=== PATIENT | female | born 1985 | race Asian ===

== ENCOUNTER 2021-02-24 18:10 | Emergency (ER) | payer SELFPAY ==
[2021-02-24 18:25] VITALS: BP 109/62
== END 2021-02-25 04:49 | disposition left against medical advice (07) ==
LOC: ED 18:10
DX: R05.9 Cough, unspecified (principal); R06.02 Shortness of breath; R51.9 Headache, unspecified; Z53.21 Procedure and treatment not carried out due to patient leaving prior to being seen by health care provider

== ENCOUNTER 2021-02-25 10:57 | Emergency (ER) | payer SELFPAY ==
[2021-02-25 11:22] VITALS: BP 107/67
--- NOTE | 2021-02-25 12:02 | Emergency Department Report ---
- General Chief Complaint: Upper Respiratory Infection Stated Complaint: COVID SYMPTONS Time Seen by Provider: 02/25/21 11:17 Source: patient Mode of arrival: Ambulatory Limitations: No Limitations - History of Present Illness Initial Comments: This is a pleasant 35-year-old female who presents emerged department chief complaint of cough, congestion, fever, body aches, headache and pain in her chest when she coughs x6 days. She denies any known past medical history, current medication use or known allergies to medications. She does report a previous surgery of a hysterectomy back 2008. She does report she has daily tobacco user approximately half pack a day but has not smoked in the last week since her symptoms started. She does report positive exposure to COVID-19. - Related Data Previous Rx's Medication Instructions Recorded Last Taken Type Azithromycin 250 mg PO DAILY #6 tablet 02/25/21 Unknown Rx Prednisone [predniSONE 10 mg 10 mg PO .TAPER #1 tab.ds.pk 02/25/21 Unknown Rx (6-Day Pack, 21 Tabs)] guaiFENesin/CODEINE [Robitussin AC] 5 ml PO Q6HR #60 oral.liqd 02/25/21 Unknown Rx Allergies Allergy/AdvReac Type Severity Reaction Status Date / Time No Known Allergies Allergy Unverified 02/21/21 01:55 ED Review of Systems ROS: Stated complaint: COVID SYMPTONS Other details as noted in HPI Comment: All other systems reviewed and negative Constitutional: chills, fever, malaise Eyes: denies: eye pain, eye discharge, vision change ENT: congestion. denies: ear pain, throat pain Respiratory: cough. denies: shortness of breath, wheezing Cardiovascular: denies: chest pain, palpitations Endocrine: no symptoms reported Gastrointestinal: denies: abdominal pain, nausea, diarrhea Genitourinary: denies: urgency, dysuria, discharge Musculoskeletal: as per HPI, myalgia. denies: back pain, joint swelling, arthralgia Skin: denies: rash, lesions Neurological: as per HPI, headache. denies: weakness, paresthesias Psychiatric: denies: anxiety, depression Hematological/Lymphatic: denies: easy bleeding, easy bruising ED Past Medical Hx - Surgical History Additional Surgical History: HYST - Medications Home Medications: Home Medications Medication Instructions Recorded Confirmed Last Taken Type Azithromycin 250 mg PO DAILY #6 tablet 02/25/21 Unknown Rx Prednisone [predniSONE 10 mg 10 mg PO .TAPER #1 tab.ds.pk 02/25/21 Unknown Rx (6-Day Pack, 21 Tabs)] guaiFENesin/CODEINE [Robitussin AC] 5 ml PO Q6HR #60 oral.liqd 02/25/21 Unknown Rx ED Physical Exam - General Limitations: No Limitations General appearance: alert, in no apparent distress - Head Head exam: Present: atraumatic, normocephalic - Eye Eye exam: Present: normal appearance, PERRL, EOMI Pupils: Present: normal accommodation - ENT ENT exam: Present: normal exam, normal orophraynx, mucous membranes moist, TM's normal bilaterally - Neck Neck exam: Present: normal inspection, full ROM. Absent: tenderness, meningismus - Respiratory Respiratory exam: Present: normal lung sounds bilaterally, chest wall tenderness. Absent: respiratory distress, wheezes, rales, rhonchi, stridor - Cardiovascular Cardiovascular Exam: Present: regular rate, normal rhythm, normal heart sounds. Absent: systolic murmur, diastolic murmur, rubs, gallop - GI/Abdominal GI/Abdominal exam: Present: soft, normal bowel sounds - Extremities Exam Extremities exam: Present: normal inspection, full ROM, normal capillary refill. Absent: tenderness, calf tenderness (No posterior calf tenderness, negative Homans' sign bilaterally.) - Back Exam Back exam: Present: normal inspection, full ROM. Absent: tenderness, CVA tenderness (R), CVA tenderness (L) - Neurological Exam Neurological exam: Present: alert, oriented X3, normal gait - Psychiatric Psychiatric exam: Present: normal affect, normal mood - Skin Skin exam: Present: warm, dry, intact, normal color. Absent: rash ED Course Vital Signs 02/25/21 02/25/21 11:18 12:49 Temperature 98.2 F 98.3 F Pulse Rate 116 H 107 H Respiratory 20 18 Rate Blood Pressure 107/67 [Right] O2 Sat by Pulse 95 95 Oximetry ED Medical Decision Making - Radiology Data Radiology results: report reviewed, image reviewed Patient: NICOLE WETZEL MR#: [id number] : 1985 Acct:[id number] Age/Sex: 35 / F ADM Date: 02/25/21 Loc: ED Attending Dr: Ordering Physician: RICA SHAH Date of Service: 02/25/21 Procedure(s): CT head/brain wo con Accession Number(s): [id number] cc: RICA SHAH CT HEAD WITHOUT CONTRAST INDICATION / CLINICAL INFORMATION: severe headache. TECHNIQUE: All CT scans at this location are performed using CT dose reduction for ALARA by means of automated exposure control. COMPARISON: None available. Limitations: Patient motion artifact degrades image quality and limits evaluation of the frontal and parietal lobes near the vertex. FINDINGS: HEMORRHAGE: No evidence of intracranial hemorrhage or extra-axial fluid collection. EXTRA-AXIAL SPACES: Cortical sulci, sylvian fissures and basilar cisterns have an unremarkable appearance. VENTRICULAR SYSTEM: The third and lateral ventricles are of normal size and configuration. CEREBRAL PARENCHYMA: No areas of abnormal brain parenchymal attenuation are identified. There is no indication of recent infarction. MIDLINE SHIFT OR HERNIATION: There is no mass effect. CEREBELLUM / BRAINSTEM: Brainstem and cerebellum have an unremarkable appearance. MIDLINE STRUCTURES:No abnormalities of the pituitary gland or pineal region are identified. INTRACRANIAL VESSELS:No abnormalities are identified on this noncontrast head CT. ORBITS: visualized portions of the orbits have an unremarkable appearance. SOFT TISSUES of HEAD: No significant abnormality. CALVARIUM: Evaluation of bone windows reveals no abnormalities. PARANASAL SINUSES / MASTOID AIR CELLS: Mucosal thickening is present in the inferior medial aspect of the left frontal sinus, within several ethmoid air cells bilaterally and in the right sphenoid sinus. Mild mucosal disease is present at the base of both maxillary sinuses. Mastoid air cells appear clear. ADDITIONAL FINDINGS: None. IMPRESSION: 1. No intracranial abnormalities on head CT without contrast. Signer Name: Yousuf Lopez MD Signed: 02/25/2021 1:17 PM Workstation Name: [id number] Transcribed By: Dictated By: Yousuf Lopez MD Electronically Authenticated By: Yousuf Lopez MD Signed Date/Time: 02/25/21 1317 - Medical Decision Making Patient nontoxic in no acute distress. She is slightly tachycardic initially however the think this is secondary to severe pain. She reported severe headache that was gradual in onset over the past few days. CT of the head was ordered and fortunately negative. Suspect the symptoms are likely secondary to a viral syndrome. Will recommend Tylenol, Motrin. She did have some slight expiratory wheezing on exam and is a smoker. I will cover her with azithromycin for atypical ] infection and outpatient follow-up. Recommended social distancing, frequent handwashing and wearing her mask. Recommended quarantine from her job for the next 5 days per the CDC guidelines. - Differential Diagnosis COVID-19, migraine, sinusitis Critical care attestation.: If time is entered above; I have spent that time in minutes in the direct care of this critically ill patient, excluding procedure time. ED Disposition Clinical Impression: Suspected COVID-19 virus infection, Acute viral syndrome, Headache after cough Disposition: 01 HOME / SELF CARE / HOMELESS Is pt being admited?: No Condition: Stable Prescriptions: Azithromycin 250 mg PO DAILY #6 tablet Prednisone [predniSONE 10 mg (6-Day Pack, 21 Tabs)] 10 mg PO .TAPER #1 tab.ds.pk guaiFENesin/CODEINE [Robitussin AC] 5 ml PO Q6HR #60 oral.liqd Referrals: PRIMARY CAREMD [Primary Care Provider] - 3-5 Days [facility] [Provider Group] - 3-5 Days Forms: Work/School Release Form(ED) Time of Disposition: 13:30
--- NOTE | 2021-02-25 13:21 | Cat Scan Report ---
CT HEAD WITHOUT CONTRAST INDICATION / CLINICAL INFORMATION: severe headache. TECHNIQUE: All CT scans at this location are performed using CT dose reduction for ALARA by means of automated e xposure control. COMPARISON: None available. Limitations: Patient motion artifact degrades image quality and limits evaluation of the frontal and parietal lobes near the vertex. FINDINGS: HEMORRHAGE: No evidence of intracranial hemorrhage or extra-axial fluid collection. EXTRA-AXIAL SPACES: Cortical sulci, sylvian fissures and basilar cisterns have an unremarkable appear ance. VENTRICULAR SYSTEM: The third and lateral ventricles are of normal size and configuration. CEREBRAL PARENCHYMA: No areas of abnormal brain parenchymal attenuation are identified. There is no i ndication of recent infarction. MIDLINE SHIFT OR HERNIATION: There is no mass effect. CEREBELLUM / BRAINSTEM: Brainstem and cerebellum have an unremarkable appearance. MIDLINE STRUCTURES:No abnormalities of the pituitary gland or pineal region are identified. INTRACRANIAL VESSELS:No abnormalities are identified on this noncontrast head CT. ORBITS: visualized portions of the orbits have an unremarkable appearance. SOFT TISSUES of HEAD: No significant abnormality. CALVARIUM: Evaluation of bone windows reveals no abnormalities. PARANASAL SINUSES / MASTOID AIR CELLS: Mucosal thickening is present in the inferior medial aspect of the left frontal sinus, within several ethmoid air cells bilaterally and in the right sphenoid sinus . Mild mucosal disease is present at the base of both maxillary sinuses. Mastoid air cells appear lorie ar. ADDITIONAL FINDINGS: None. IMPRESSION: 1. No intracranial abnormalities on head CT without contrast. Signer Name: Yousuf Lopez MD Signed: 02/25/2021 1:17 PM Workstation Name: [id number]
== END 2021-02-25 14:00 | disposition home or self-care (01) ==
LOC: ED 10:57
DX: B34.9 Viral infection, unspecified (principal); Z20.822 Contact with and (suspected) exposure to COVID-19
CPT/HCPCS: 70450; 99283